=== PATIENT | female | born 1945 | race Caucasian/White ===

== ENCOUNTER 2025-01-07 13:06 | Inpatient (IN) | payer MEDICARE ==
[~2025-01-07] VITALS: Ht 172.7 cm; Wt 76.9 kg
[2025-01-07] MEDS ORDERED: IOHEXOL 350 MG/ML 100 ML VIAL ONE (13:23)
[2025-01-07] MEDS ORDERED: APIX2.5T PO (13:28)
[2025-01-07] MEDS ORDERED: IDARUCIZUMAB 2.5 GM/50 ML VIAL IVP ONE (13:30)
[2025-01-07 13:42] LABS: BASOPHILS % (AUTO) 1.2 % (0.0-2.0); EOSINOPHILS % (AUTO) 1.5 % (1.0-6.0); HEMATOCRIT 48.1 % (36-46); HEMOGLOBIN 16.3 g/dL (12.0-16.0); LYMPHOCYTES # (AUTO) 2.3 K/uL (1.0-4.8); LYMPHOCYTES % (AUTO) 26.6 % (22.0-44.0); MEAN CORPUSCULAR HEMOGLOBIN 30.9 pg (26.0-34.0); MEAN CORPUSCULAR HGB CONC 33.8 G/dL (31.0-37.0); MEAN CORPUSCULAR VOLUME 92 fL (80-100); MONOCYTES # (AUTO) 0.7 K/uL (0.1-1.0); MONOCYTES % (AUTO) 7.7 % (2.0-9.0); NEUTROPHILS # (AUTO) 5.4 K/uL (1.8-7.7); PLATELET COUNT (AUTO) 279 K/uL (150-450); RED BLOOD CELL COUNT(AUTO) 5.26 MIL/uL (4.00-5.20); RED CELL DISTRIBUTION WIDTH 14.2 % (11.5-14.5); WHITE BLOOD COUNT (AUTO) 8.6 K/uL (4.5-11.0)
[2025-01-07] MEDS ORDERED: NiCARDipine HCL 25 MG in SODIUM CHLORIDE 0.9% 240 ML IV PRN (13:45)
[2025-01-07 13:54] LABS: CALCIUM, TOTAL 10.6 mg/dL (8.8-10.5); CREATININE 0.95 mg/dL (0.60-1.30); POTASSIUM 3.3 mmol/L (3.5-5.1)
[2025-01-07 13:55] LABS: HEMOGLOBIN A1C 6.1 % (3.8-5.6); LIPASE 36 U/L (16-77)
[2025-01-07] MEDS: HUM PROTHROMBIN CPLX(PCC)4FACT 1,000 UNIT VIAL IVP ONE (13:55)
[2025-01-07 13:58] LABS: ALBUMIN 4.3 g/dL (3.4-5.0); BILIRUBIN,TOTAL 1.6 mg/dL (0.1-1.0); CHOL/HDL RATIO 3.2 (3.9-5.7); TOTAL PROTEIN, SERUM 8.1 g/dL (6.4-8.2)
[2025-01-07 14:00] LABS: TROPONIN I-HIGH SENSITIVITY 15 ng/L (<51)
[2025-01-07 14:07] LABS: B-TYPE NATRIURETIC PEPTIDE 281 pg/mL (0-100)
[2025-01-07] MEDS: NiCARDipine HCL 25 MG in SODIUM CHLORIDE 0.9% 240 ML IV PRN (14:13)
[2025-01-07] MEDS ORDERED: PROPOFOL 1000 MG/ISO-OSM 100 ML ONE (14:13)
[2025-01-07 14:15] VITALS: PULSE 100; RESP 18; O2SAT 99
[2025-01-07 14:15] LABS: ALCOHOL, BLOOD (SERUM) < 3 mg/dL (0-10)
[2025-01-07] MEDS: PROPOFOL 1000 MG/ISO-OSM 100 ML IV PRN (14:32)
[2025-01-07 15:06] LABS: ABG BASE EXCESS -1.7 mmol/L (-2.0-3.0); ABG HCO3 23.5 mmol/L (21.0-28.0); ABG PCO2 38 mmHg (32.0-45.0); ABG PH 7.404 (7.350-7.450); ALLEN TEST, BLOOD GAS Positive; PO2, ARTERIAL BG 301.6 mmHg (83.0-108.0); SITE, BLOOD GAS RT RADIAL; SOURCE, BLOOD GAS ARTERIAL; TEMPERATURE, FAHRENHEIT, BG 98.6 FAHREN (96.0-98.6)
[2025-01-07 15:07] LABS: APPEARANCE,URINE CLEAR (CLEAR); BILIRUBIN,URINE NEGATIVE (NEGATIVE); COLOR,URINE COLORLESS (YELLOW); GLUCOSE, URINE (UA) 300-500 mg/dL (NEGATIVE); KETONES,URINE TRACE mg/dL (NEGATIVE); LEUKOCYTE ESTERASE ,URINE NEGATIVE (NEGATIVE); NITRATE,URINE NEGATIVE (NEGATIVE); OCCULT BLOOD,URINE SMALL (NEGATIVE); PROTEIN,URINE 30-70 mg/dL (NEGATIVE); SPECIFIC GRAVITIY, URINE 1.022 (1.003-1.030); UROBILINOGEN,URINE <=1.0 mg/dL (<=1.0)
[2025-01-07 15:07] LABS: ABG A-A DIFF O2 373.7 mmHg (10-20.0); ABG CARBOXYHEMOGLOBIN 0.9 % (0.5-1.5); ABG METHEMOGLOBIN 0.7 % (0.0-1.5); ABG OXYGEN CONTENT 23.6 mL/dL (15.0-23.0); ABG OXYGEN SATURATION 99.7 % (94.0-98.0); ABG OXYHEMOGLOBIN 98.1 % (94.0-98.0); ABG TOTAL HEMOGLOBIN 16.6 G/dL (12.0-16.0); O2 DEVICE,BLOOD GAS VENTILATOR (ROOM AIR); VT, ABG 430 ml
[2025-01-07 15:08] LABS: PEEP,BG 5 cm H2O
[2025-01-07 15:13] LABS: AMPHET/METH SCREEN,URINE NEGATIVE (NEGATIVE); BARBITURATE SCREEN, URINE NEGATIVE (NEGATIVE); BENZODIAZEPINES SCREEN,URINE NEGATIVE (NEGATIVE); CANNABINOID SCREEN,URINE NEGATIVE (NEGATIVE); COCAINE SCREEN,URINE NEGATIVE (NEGATIVE); METHADONE SCREEN, URINE NEGATIVE (NEGATIVE); OPIATE SCREEN,URINE NEGATIVE (NEGATIVE); PHENCYCLIDINE SCREEN,URINE NEGATIVE (NEGATIVE)
[2025-01-07 15:15] LABS: ALCOHOL, URINE DRUG SCREEN NEGATIVE (NEGATIVE)
[2025-01-07] MEDS ORDERED: MAGNESIUM HYDROXIDE SUSPENSION 30 ML UDCUP PO PRN (15:45)
[2025-01-07] MEDS ORDERED: ZOLPIDEM TARTRATE 5 MG TABLET PO PRN (15:45)
[2025-01-07] MEDS ORDERED: HYDROCODONE/ACETAMINOPHEN 5-325 MG TABLET PO PRN (15:45)
[2025-01-07] MEDS ORDERED: BISACODYL 10 MG RECTAL RECTAL SUPPOSITORY PR PRN (15:45)
[2025-01-07] MEDS ORDERED: ONDANSETRON HCL 4 MG/2 ML VIAL IVP PRN (15:45)
[2025-01-07 16:19] LABS: BACTERIA,URINE Few /HPF (None Seen); SQUAMOUS EPITHELIAL CELL,UR Rare /LPF (None Seen); WBC,URINE 0-2 /HPF (0-5)
[2025-01-07 16:20] VITALS: PULSE 73; RESP 18; O2SAT 97
[2025-01-07 19:20] VITALS: PULSE 79; RESP 18; O2SAT 98
[2025-01-07 19:50] LABS: TROPONIN I-HIGH SENSITIVITY 56 ng/L (<51)
[2025-01-07] MEDS: DOCUSATE SODIUM 100 MG CAPSULE PO SCH (21:00)
[2025-01-07 22:10] VITALS: PULSE 74; RESP 20; O2SAT 95
[2025-01-07 22:20] VITALS: BP_SYST 140; BP_SYST 144; BP_DIAS 90; PULSE 75; PULSE 76; RESP 18; TEMP 98.4; O2SAT 95
[2025-01-07] MEDS: ETHYL ALCOHOL 62% ANTISEPTIC NASAL SANITIZER 0.6 ML AMPUL NASAL SCH (23:37)
[2025-01-08] VITALS (17 sets, daily range): BP systolic 131–148; BP diastolic 60–95; PULSE 71–103; RESP 18–23; TEMP 98.7–100; O2SAT 94–95
[2025-01-08 02:02] LABS: TROPONIN I-HIGH SENSITIVITY 49 ng/L (<51)
[2025-01-08 05:55] LABS: BASOPHILS % (AUTO) 0.8 % (0.0-2.0); EOSINOPHILS % (AUTO) 0.1 % (1.0-6.0); HEMATOCRIT 46.5 % (36-46); HEMOGLOBIN 15.9 g/dL (12.0-16.0); LYMPHOCYTES % (AUTO) 6.5 % (22.0-44.0); MEAN CORPUSCULAR HGB CONC 34.2 G/dL (31.0-37.0); MEAN CORPUSCULAR VOLUME 91 fL (80-100); MONOCYTES % (AUTO) 6.7 % (2.0-9.0); NEUTROPHILS # (AUTO) 12.7 K/uL (1.8-7.7); PLATELET COUNT (AUTO) 267 K/uL (150-450); RED BLOOD CELL COUNT(AUTO) 5.12 MIL/uL (4.00-5.20); RED CELL DISTRIBUTION WIDTH 14.3 % (11.5-14.5); WHITE BLOOD COUNT (AUTO) 14.8 K/uL (4.5-11.0)
[2025-01-08 06:02] LABS: NEUTROPHILS % (AUTO) 85.9 % (40.0-70.0)
[2025-01-08 06:06] LABS: CALCIUM, TOTAL 10.2 mg/dL (8.8-10.5); CHLORIDE 103 mmol/L (98-107); CREATININE 0.74 mg/dL (0.60-1.30); GLOMERULAR FILTR. RATE CALC > 60 mL/min (>60); GLUCOSE,RANDOM 182 mg/dL (70-110); POTASSIUM 3.1 mmol/L (3.5-5.1); SODIUM SERUM 139 mmol/L (136-145); UREA NITROGEN, BLOOD 23 mg/dL (7-18)
[2025-01-08 06:18] LABS: ANION GAP 10 mmol/L (8-16); CARBON DIOXIDE 26 mmol/L (22-29)
[2025-01-08 06:25] LABS: RBC MORPHOLOGY COMMENT NORMAL RBC MORPH
[2025-01-08] MEDS: NiCARDipine HCL 25 MG in SODIUM CHLORIDE 0.9% 240 ML IV PRN (06:28)
[2025-01-08] MEDS ORDERED: POTASSIUM CHLORIDE 20 MEQ ER TABLET PO PRN (08:15)
[2025-01-08] MEDS: POTASSIUM CHL 10 MEQ/WATER 50 ML IV PRN (08:47)
[2025-01-08] MEDS: PANTOPRAZOLE SODIUM 40 MG DR TABLET PO SCH (08:47)
[2025-01-08] MEDS: ACETAMINOPHEN 325 MG TABLET PO PRN (08:47)
[2025-01-08] MEDS ORDERED: SODIUM CHLORIDE 0.9% 250 ML IV ONE (08:48)
[2025-01-09] VITALS (13 sets, daily range): BP systolic 121–147; BP diastolic 64–83; PULSE 62–95; RESP 18–24; TEMP 98.1–99.5; O2SAT 93–96
[2025-01-09 05:35] LABS: BASOPHILS % (AUTO) 0.4 % (0.0-2.0); EOSINOPHILS % (AUTO) 0 % (1.0-6.0); HEMATOCRIT 40.3 % (36-46); HEMOGLOBIN 13.9 g/dL (12.0-16.0); LYMPHOCYTES # (AUTO) 1.3 K/uL (1.0-4.8); LYMPHOCYTES % (AUTO) 7.3 % (22.0-44.0); MEAN CORPUSCULAR HEMOGLOBIN 31.3 pg (26.0-34.0); MEAN CORPUSCULAR HGB CONC 34.5 G/dL (31.0-37.0); MEAN CORPUSCULAR VOLUME 91 fL (80-100); MONOCYTES # (AUTO) 1.5 K/uL (0.1-1.0); MONOCYTES % (AUTO) 8.5 % (2.0-9.0); NEUTROPHILS # (AUTO) 14.5 K/uL (1.8-7.7); NEUTROPHILS % (AUTO) 83.8 % (40.0-70.0); PLATELET COUNT (AUTO) 270 K/uL (150-450); RED BLOOD CELL COUNT(AUTO) 4.44 MIL/uL (4.00-5.20); RED CELL DISTRIBUTION WIDTH 14.4 % (11.5-14.5); WHITE BLOOD COUNT (AUTO) 17.3 K/uL (4.5-11.0)
[2025-01-09 05:42] LABS: CALCIUM, TOTAL 9.4 mg/dL (8.8-10.5); CREATININE 0.98 mg/dL (0.60-1.30); POTASSIUM 4.3 mmol/L (3.5-5.1)
[2025-01-09] MEDS: MORPHINE SULFATE 2 MG/ML SYRINGE IVP PRN (23:14)
[2025-01-10] VITALS: BP 164/117; PULSE 112; RESP 27; TEMP 99.1; O2SAT 53
== END 2025-01-10 02:48 | DRG 64 ==
LOC: EMS 13:06 → EDH 15:31 → ICU 22:51
PROVIDERS: ADMIT Internal Medicine; ATTEND Internal Medicine
PROC: 0BH17EZ Insertion of Endotracheal Airway into Trachea, Via Natural or Artificial Opening (ICD-10-PCS; principal; 2025-01-07)
PROC: 5A1945Z Respiratory Ventilation, 24-96 Consecutive Hours (ICD-10-PCS; 2025-01-07)
DX: I61.4 Nontraumatic intracerebral hemorrhage in cerebellum (principal); J96.00 Acute respiratory failure, unspecified whether with hypoxia or hypercapnia; G91.1 Obstructive hydrocephalus; I16.1 Hypertensive emergency; I60.9 Nontraumatic subarachnoid hemorrhage, unspecified; I61.5 Nontraumatic intracerebral hemorrhage, intraventricular; I48.91 Unspecified atrial fibrillation; I10 Essential (primary) hypertension; E66.01 Morbid (severe) obesity due to excess calories; Z68.25 Body mass index [BMI] 25.0-25.9, adult; I46.9 Cardiac arrest, cause unspecified
CPT/HCPCS: 31500; 51702; 70450; 70496; 70498; 71045; 80048; 80053; 80061; 80307; 81001; 82805; 82948; 83036; 83690; 83880; 84132; 84484; 85025; 85362; 85384; 85610; 85730; 86850; 86900; 86901; 87070; 87081; 93005; 94002; 94003; 99291; 99292; G0480; J2270; J2704; J3480; J3490; J7050; 36415-L1; 36415-TC